=== PATIENT | male | born 1955 | race Caucasian/White ===

== ENCOUNTER 2023-06-17 06:11 | Emergency (ER) | payer MEDICARE, OTHER, SELFPAY ==
[2023-06-17 06:13] VITALS: BP 122/82
--- NOTE | 2023-06-17 06:27 | ED.GENMED ---
History of Present Illness
General
Chief Complaint: Swelling
Source: patient
Exam Limitations: none
Time Seen by Provider: 06/17/23 06:16
Travel History
Have you had any contact with someone who has COVID-19?: No
Do you have any symptoms of coronavirus? Fever > 100 degrees, chills, cough, shortness of breath, sore throat, loss of taste or smell, muscle aches, or headache?: No
History of Present Illness
History of Present Illness:
Patient woke this morning with nontraumatic left knee swelling. Minimal pain. No trauma recently or repetitive activity. Patient with a history of factor V. On Coumadin. INR was last at 2.2. Denies chest pain shortness of breath. No pain with
weightbearing. No fever chills or infectious symptoms.
Past History
Past History
ED Past Medical History: Other (Lipomas) and Other (DVT. Factor V Leiden)
ED Past Surgical History: Orthopedic, Urological and Other (Hernia repair)
Social History
Tobacco: Non-smoker
Personal:
Living: with family
Employment: Employed
Family History
Family History: Other (Noncontributory)
Review of Systems
Review of Systems
All Other Systems: Not applicable
Constitutional: Denies fever or chills
Skin: Denies rash
Phy Exam
Physical Exam
Physical Exam:
GENERAL: Alert and oriented in no apparent distress
CARDIAC: Regular rate and rhythm
LUNGS: No respiratory distress
NEUROLOGICAL: Alert and oriented , grossly non-focal
SKIN: Warm and dry, no rash or lesion, no discoloration, small well-healing abrasion to the left mid tibia
MUSCULOSKELETAL: Suprapatellar swelling to the left knee. Lipoma near this site laterally. No warmth no erythema no pain with joint motion. Left calf thigh normal. Good distal pulses and color multiple lipomas to the right thigh.
PSYCH: Normal and appropriate interaction.
Scores
Heart Failure Risk
Heart Failure Risk Score: Not Applicable
Course
Orders/Labs/Results
Orders:
Orders
06/17/23 06:27
US Periph Venous LOWER Ext LT Urgent
Comment:
Reason For Exam: Leg swelling. History of DVT
06/17/23 06:36
Basic Metabolic Panel Urgent
CRP [C-Reactive Protein] Urgent
Complete Blood Count/With Diff Urgent
D-Dimer Urgent
Comment: ADD ON
ESR [Erythrocyte Sed Rate] Urgent
Lyme Progressive Urgent
Comment: ADD ON
PTT Urgent
Prothrombin Time Urgent
06/17/23 07:23
Knee, Left 4 or More Views [CR Knee - Left 4 Or More View*] Urgent
Comment:
Reason For Exam: knee swelling
06/17/23 07:44
Add On- LAB Urgent
Tests Added?: d-dimer
06/17/23 08:43
Add On- LAB Urgent
Tests Added?: lyme progressive
06/17/23 09:27
Kevin Wrap Left-Treatment ONCE
Abnormal Lab Results
06/17/23
06:36
MCH 32.0 H pg
(27.0-31.0)
Neutrophils % 41.7 L %
(42.2-75.2)
Monocytes % 11.1 H %
(1.7-9.3)
PT 27.0 H Sec
(11.4-14.6)
APTT 45.0 H Sec
(23.4-35.0)
Chloride 109 H mmol/L
(98-107)
06/17/23 06:36
06/17/23 06:36
Vital Signs
Initial and Last Documented VS:
Initial Vital Signs
Temp Pulse Resp BP Pulse Ox
98 F 69 18 122/82 95
06/17/23 06:13 06/17/23 06:13 06/17/23 06:13 06/17/23 06:13 06/17/23 06:13
Last Documented Vital Signs
Temp Pulse Resp BP Pulse Ox
98 F 63 18 126/78 98
06/17/23 06:13 06/17/23 09:40 06/17/23 09:40 06/17/23 09:40 06/17/23 09:40
MDM/Problems Addressed
Differential Diagnosis Includes:
Patient here primarily out of concern for DVT. Clinically this is a suprapatellar effusion. Highly doubt DVT however will get ultrasound to confirm with patient's history. As for the nontraumatic joint effusion, highly doubt septic arthritis.
There is no warmth no erythema and no pain with joint motion. No infectious symptoms. Patient does have a small abrasion to the left mid tibia however no secondary signs of infection. Workup in progress
*Radiology
Radiology exam reviewed: radiology read reviewed (Occlusive and nonocclusive clot in the left femoral vein nonocclusive clot in the left popliteal vein most likely chronic)
*Pulse Oximetry
Patient hypoxic: no
*Critical Care Note
Total Time (30-74mins, 75-104mins- exclusive of procedures): Not Applicable
Update Note
Update Note:
0745.... Discussed with hematology. Clinically this is a suprapatellar effusion. Likely hemarthrosis. Highly doubt infectious issue with no warmth no erythema no pain with joint motion, no fever or infectious issues. Normal CRP. Normal ESR. No
indication for arthrocentesis at this time. However ultrasound describes acute and chronic clot. Question of whether he would need different anticoagulation management. Discussed with hematology. Asked for a D-dimer to help delineate further
care.
0920.... Discussed again with hematology. No change in current management. Again no clinical findings to suspect septic arthritis. Kevin wrap ice elevation Tylenol and close hematology follow-up
ED Attending Note
-
Portions of this chart may have been created with voice recognition software.� Occasional wrong word or��sound alike� substitutions may have occurred due to the inherent limitations of voice recognition software.
Discharge Plan
Departure
Patient Disposition: Home (Routine Discharge)
Date of Disposition: 06/17/23
Time of Disposition: 09:25
Patient with high blood pressure during this ER visit?: Yes
Discharge Problem:
Left knee effusion, Suspect hemarthrosis, Chronic DVT left leg, Coagulopathy
Instructions: Deep Vein Thrombosis (Blood Clots in the Legs) (DC)
Prescriptions:
No Action
warfarin [Jantoven] 10 MG tablet
10 mg PO DAILY
finasteride 5 MG tablet
5 mg PO DAILY
escitalopram oxalate [Lexapro] 20 mg Tablet
20 mg PO DAILY
Referrals:
Piero Ash I., DO [Family Provider] - Follow up in 2-3 days
Activity Restrictions/Additional Instructions:
Call Dr. Turner's office today for close follow-up this week
Continue your Coumadin
Elevate ice and Tylenol for the left knee
Also call your orthopedic group for follow-up
Return sooner with increased swelling pain fever chest pain shortness of breath or any other concerning symptoms
Interventions
Interventions:
*Risk Screen - Suicide Last Done: 06/17/23 06:13
*General Assessment Last Done: 06/17/23 06:28
*Neglect/Abuse Screening Last Done: 06/17/23 06:13
ED- Fall Risk Assessment Last Done: 06/17/23 09:58
*ED COVID-19 Vaccine History Last Done: 06/17/23 06:20
*Nursing Disposition Last Done: 06/17/23 09:58
ED- Cardiac Assessment Last Done: 06/17/23 07:11
ED-Musculoskeletal Assessment Last Done: 06/17/23 07:11
ED- Pulmonary Assessment Last Done: 06/17/23 06:38
ED-Skin Assessment Last Done: 06/17/23 06:38
Discharge Date and Time
Discharge Date/Time: 06/17/23 09:59
[2023-06-17 06:28] VITALS: BMI 27.6
[2023-06-17 06:46] LABS: % Basophils 0.7 % (0-2); % Eosinophils 5.3 % (0-6); % Immature Granulocytes 0.2 % (0-0.5); % Monocytes 11.1 % (1.7-9.3); % Neutrophils 41.7 % (42.2-75.2); Absolute Eosinophils 0.3 10^3/uL (0-0.7); Absolute Lymphocytes 2.3 10^3/uL (1.2-3.4); Absolute Monocytes 0.6 10^3/uL (0.1-0.6); Absolute Neutrophils 2.3 10^3/uL (1.4-6.5); Hematocrit 42.6 % (39.0-52.0); Hemoglobin 15.2 g/dL (13.0-18.0); Mean Corp Hgb Conc. 35.7 g/dL (33.0-37.0); Mean Corpuscular Volume 89.7 fL (80.0-94.0); Mean Platelet Volume 9.1 fL (7.4-10.4); Nucleated Red Blood Cells % 0 % (-); Platelet Count 192 10^3/uL (130-400); Red Blood Cell Count 4.75 10^6/uL (4.70-6.10); Red Cell Dist. Width 13.4 % (11.5-14.5); White Blood Cell Count 5.5 10^3/uL (4.8-10.8)
[2023-06-17 06:58] LABS: INR 2.51
[2023-06-17 07:02] LABS: Blood Urea Nitrogen 14 mg/dl (9-20); Calcium 8.7 mg/dl (8.4-10.2); Carbon Dioxide 25 mmol/L (22-30); Chloride 109 mmol/L (98-107); Estimated Creatinine Clearance 91 ml/min; Glucose 93 mg/dl (70-99); Potassium 4.2 mmol/L (3.5-5.1); Sodium 136 mmol/L (135-145); eGFR > 60.00
[2023-06-17 07:04] LABS: C-Reactive Protein < 5.00 mg/L (0.0-10.00)
[2023-06-17 07:51] LABS: Erythrocyte Sed Rate 9 mm/hour (0-20)
[2023-06-17 08:21] LABS: D-Dimer < 0.27 ug/mlFEU (0.00-0.50)
[2023-06-17 09:40] VITALS: BP 126/78
[2023-06-19 16:20] LABS: Lyme Antibody Screen, EIA Negative (Negative)
== END 2023-06-17 09:59 | disposition home or self-care (01) ==
LOC: EMR 06:11
PROVIDERS: EMERGENCY PHYSICIAN Emergency Medicine; FAMILY PHYSICIAN Internal Medicine
DX: M25.462 Effusion, left knee (principal); I82.502 Chronic embolism and thrombosis of unspecified deep veins of left lower extremity; R03.0 Elevated blood-pressure reading, without diagnosis of hypertension; Z79.01 Long term (current) use of anticoagulants
CPT/HCPCS: 99285; 73564; 80048; 85025; 85379; 85610; 85652; 85730; 86140; 86618; 93971

== ENCOUNTER → 2024-02-20 06:38 | Day surgery (SDC) | payer MEDICARE, OTHER, SELFPAY | LOC: GI 06:38 | PROVIDERS: ATTENDING PHYSICIAN Internal Medicine | DX: Z12.11 Encounter for screening for malignant neoplasm of colon (principal); K64.8 Other hemorrhoids; K57.30 Diverticulosis of large intestine without perforation or abscess without bleeding; Z86.0100 Personal history of colon polyps, unspecified; D12.0 Benign neoplasm of cecum; D12.3 Benign neoplasm of transverse colon; K63.5 Polyp of colon; K62.1 Rectal polyp | CPT/HCPCS: 45385; 45380; 88305 ==

== ENCOUNTER → 2025-02-18 10:16 | Outpatient (REF) | payer MEDICARE, OTHER, SELFPAY ==
[2025-02-18 11:34] LABS: INR 2.66; PT 28.7 Sec (11.4-14.6)
== END ==
LOC: REG 10:16
PROVIDERS: ATTENDING PHYSICIAN Internal Medicine Hematology & Oncology; FAMILY PHYSICIAN Internal Medicine
DX: I82.402 Acute embolism and thrombosis of unspecified deep veins of left lower extremity (principal)
CPT/HCPCS: 36415; 85610

== ENCOUNTER → 2025-04-29 08:13 | Outpatient (REF) | payer MEDICARE, OTHER, SELFPAY | LOC: RAD 08:13 | PROVIDERS: ATTENDING PHYSICIAN Nurse Practitioner Family; FAMILY PHYSICIAN Internal Medicine | DX: R22.1 Localized swelling, mass and lump, neck (principal) | CPT/HCPCS: 76536 ==